=== PATIENT | male | born 1960 | race Two or more races ===

== ENCOUNTER 2022-03-13 14:56 | Outpatient (CLI) | payer BC, SELFPAY ==
--- NOTE | 2022-03-16 12:43 | WPDPFTINT ---
PFT Procedure Performed PFT Procedure Performed Spirometry with Pre/Post Bronchodilator Plethysmography (Lung Vol) Diffusing Cap (DLCO) Flow Vol Loop PFT Interpretation Lung volumes were measured with the body plethysmography method. Lung volumes are unremarkable. Spirometry showed normal expiratory flow rates and a normal FEV1 to FVC ratio of 80%. Following administration of a bronchodilator, there was no significant change in the expiratory flow rates. Lung diffusion capacity is mildly reduced at 63% predicted. Flow volume loop is unremarkable. Impression: Spirometry and lung volumes within normal range. Mild reduction in lung diffusion capacity.
== END 2022-03-13 14:57 | disposition home or self-care (01) ==
LOC: ANHPFT 14:57
PROVIDERS: PCP Internal Medicine; Visit Provider Internal Medicine
DX: J44.9 Chronic obstructive pulmonary disease, unspecified (principal)
CPT/HCPCS: 94060; 94726; 94729

== ENCOUNTER 2022-09-07 14:09 | Outpatient (CLI) | payer BC, SELFPAY | END 2022-09-07 14:10 | disposition home or self-care (01) | LOC: ANHLAB 14:11 | PROVIDERS: PCP Internal Medicine; Visit Provider Internal Medicine | DX: R56.9 Unspecified convulsions (principal) | CPT/HCPCS: 36415; 80177 ==